=== PATIENT | female | born 1945 | race Caucasian/White ===

== ENCOUNTER 2017-02-24 15:15 | Emergency (ER) | payer MEDICARE, OTHER ==
[~2017-02-24] VITALS: Ht 157.5 cm; Wt 73.0 kg
[~2017-02-24 15:15] MED LIST: CEPH500C3 PO
[2017-02-24 15:22] VITALS: BP 114/67; PULSE 98; RESP 18; TEMP 99.1; O2SAT 96
[2017-02-24] MEDS ORDERED: CEPH-460 PO ×2 (16:01)
--- NOTE | 2017-02-24 16:01 | PD ---
HPI Chief Complaint: Edema Time Seen by Provider: 15:46 Travel History International Travel<30 days: No Contact w/Intl Traveler<30days: No Traveled to known affect area: No History of Present Illness HPI The patient is a 71-year-old female who presents to the emergency department for swelling to the anterior superior aspect of the left neck. The patient has a history of similar symptoms in the past secondary to a "stone in the salivary gland "according to the patient. The patient states her symptoms present when she wears a partial, she was wearing a partial and then her symptoms started. She stopped wearing her partial several days ago and the swelling has improved. The swelling started on Wednesday. She denies any unusual lesions under the tongue or in the mouth. She denies any ear pain, sore throat, or difficulty swallowing. She denies any fever, chills, or sweats. Symptoms are moderate, similar to previous episodes where she had a stone in the salivary gland, and alleviated in the past with antibiotics, including Keflex per her recollection. PFSH Past Medical History ?: Not Past Surgical History Gynecologic Surgery: Yes (HYSTERECTOMY) Hysterectomy: Yes Pacemaker: No Other Surgery: No Social History Alcohol Use: No Tobacco Use: No Substance Use: No Allergies-Medications (Allergen,Severity, Reaction): Coded Allergies: No Known Allergies (Unverified , 02/24/17) Reported Meds & Prescriptions Reported Meds & Active Scripts Active Keflex (Cephalexin Monohydrate) 500 Mg Cap 500 Mg PO Q8 Review of Systems Except as stated in HPI: all other systems reviewed are Neg General / Constitutional: No: Fever HENT: Positive: Neck Pain, Other (as noted in history of present illness) Cardiovascular: No: Chest Pain or Discomfort Respiratory: No: Shortness of Breath Gastrointestinal: No: Nausea, Vomiting, Abdominal Pain Skin: No Rash Physical Exam Narrative GENERAL: Awake, alert, very pleasant 71-year-old female who appears her stated age and is in no acute respiratory distress. SKIN: Focused skin assessment warm/dry. HEAD: Atraumatic. Normocephalic. EYES: Pupils equal and round. No scleral icterus. No injection or drainage. ENT: No nasal bleeding or discharge. TMs are translucent and EACs are clear. Oropharynx reveals teeth to the bottom, when the tongue is elevated, no visible mass. I cannot palpate a stone in the left aspect of the mouth or under the tongue. NECK: Trachea midline. No JVD. Mild swelling in the anterior superior aspect of the neck just inferior to the mentum with approximately 4 cm in diameter, minimal tenderness. CARDIOVASCULAR: Regular rate and rhythm. No murmur appreciated. RESPIRATORY: No accessory muscle use. Clear to auscultation. Breath sounds equal bilaterally. GASTROINTESTINAL: Abdomen soft, non-tender, nondistended. No rebound tenderness. MUSCULOSKELETAL: No obvious deformities. No clubbing. No cyanosis. No edema. NEUROLOGICAL: Awake and alert. No obvious cranial nerve deficits. Motor grossly within normal limits. Normal speech. PSYCHIATRIC: Appropriate mood and affect; insight and judgment normal. Data Data Last Documented VS Vital Signs Date Time Temp Pulse Resp B/P (MAP) Pulse Ox O2 Delivery O2 Flow Rate FiO2 02/24/17 15:52 16 96 Room Air 02/24/17 15:22 99.1 98 114/67 (83) [facility] Medical Decision Making Medical Screen Exam Complete: Yes Emergency Medical Condition: Yes Medical Record Reviewed: Yes Differential Diagnosis Differential diagnosis includes parotitis, sialadenitis, ANUG, abscess, submandibular abscess, submandibular stone. Narrative Course The patient has mild swelling over the anterior aspect of the neck to see if her to med small the left with a history of salivary stones in the past with similar symptoms which resolved with Keflex. The patient states the swelling has improved since she stopped wearing her lower partial. Patient states Keflex has worked in the past, she is nontoxic appearing and would prefer to try a trial of Keflex prior to any imaging. She is advised to return if symptoms worsen or should progresses to fever for CT soft tissue of the neck with IV contrast. The patient agrees and understands. She will be placed on Keflex. She is advised to use sialogues. Diagnosis Primary Impression: Localized swelling, mass and lump, neck Additional Impression: Sialadenitis Patient Instructions: General Instructions Additional Instructions: Medications as directed. Use sialogues. Return for fever or progressing symptoms. Follow-up with her primary physician. Med/Other Pt SpecificInfo: Prescription(s) given Scripts Cephalexin (Keflex) 500 Mg Cap 500 MG PO Q6H for Infection for 7 Days, #28 CAP 0 Refills Prov: Andriy Coffey MD 02/24/17 Disposition: 01 DISCHARGE HOME Condition: Stable Andriy Coffey MD Feb 24, 2017 16:01
== END 2017-02-24 16:23 | disposition home or self-care (01) ==
LOC: PHED 15:15
DX: R22.1 Localized swelling, mass and lump, neck (principal); K11.20 Sialoadenitis, unspecified
CPT/HCPCS: 99283